=== PATIENT | female | born 1990 | race Caucasian/White ===

== ENCOUNTER 2019-08-08 16:53 | Emergency (ER) | payer OTHER ==
[~2019-08-08] VITALS: Ht 157.4 cm; Wt 80.7 kg
== END 2019-08-08 18:30 | disposition home or self-care (01) ==
LOC: ED 16:53
DX: S70.362A Insect bite (nonvenomous), left thigh, initial encounter (principal); Z91.040 Latex allergy status; W57.XXXA Bitten or stung by nonvenomous insect and other nonvenomous arthropods, initial encounter; Y93.89 Activity, other specified; Y92.89 Other specified places as the place of occurrence of the external cause; Y99.8 Other external cause status

== ENCOUNTER 2020-01-14 09:55 | Emergency (ER) | payer OTHER ==
[~2020-01-14] VITALS: Ht 157.4 cm; Wt 80.7 kg
[2020-01-14 10:38] LABS: BASO % 0.2 % (0.0-1.0); HEMATOCRIT 36.4 % (37.0-47.0); LYMPH # 0.8 10*3/uL (1.3-4.4); LYMPH % 15.3 % (27.0-41.0); MEAN CELL VOLUME 86.1 fl (81.0-99.0); MEAN CORPUSCULAR HGB 29.6 pg (27.0-31.0); MEAN CORPUSCULAR HGB CONC 34.3 g/dl (33.0-37.0); MEAN PLATELET VOLUME 9.5 fl (9.6-12.3); MONO # 0.3 10*3/uL (0.1-1.0); MONO % 5.8 % (3.0-9.0); NEUT % 78.5 % (47.0-73.0); PLATELET COUNT AUTOMATED 213 10*3/uL (130-400); RED BLOOD COUNT 4.23 10*6/uL (4.10-5.10); RED CELL DISTRI WIDTH 11.8 % (0-14.5)
[2020-01-14 10:55] LABS: ALBUMIN 3.5 gm/dl (3.1-4.5); ALKALINE PHOSPHATASE 61 U/L (45-117); BUN 15 mg/dl (7-24); CHLORIDE 104 mmol/L (98-107); CREATININE 0.87 mg/dL (0.55-1.02); POTASSIUM 3.5 mmol/L (3.5-5.1); SGOT/AST 21 IU/L (3-35); SGPT/ALT 25 U/L (12-78); SODIUM 135 mmol/L (136-145); TOTAL PROTEIN 6.9 gm/dL (6.4-8.2)
== END 2020-01-14 11:38 | disposition home or self-care (01) ==
LOC: ED 09:55
PROVIDERS: Nurse Practitioner Family
DX: L03.90 Cellulitis, unspecified (principal); G43.909 Migraine, unspecified, not intractable, without status migrainosus

== ENCOUNTER 2020-01-24 17:20 | Emergency (ER) | payer OTHER ==
[~2020-01-24] VITALS: Ht 157.4 cm; Wt 80.7 kg
[2020-01-24 18:24] LABS: BASO % 0.1 % (0.0-1.0); EOS % 0.3 % (1.0-4.0); HEMATOCRIT 39.7 % (37.0-47.0); LYMPH # 1.1 10*3/uL (1.3-4.4); MEAN CELL VOLUME 88.4 fl (81.0-99.0); MEAN CORPUSCULAR HGB CONC 32.7 g/dl (33.0-37.0); MEAN PLATELET VOLUME 9.1 fl (9.6-12.3); MONO # 0.4 10*3/uL (0.1-1.0); NEUT # 5.7 10*3/uL (2.3-7.9); NEUT % 78.9 % (47.0-73.0); PLATELET COUNT AUTOMATED 388 10*3/uL (130-400); RED BLOOD COUNT 4.49 10*6/uL (4.10-5.10); RED CELL DISTRI WIDTH 12.3 % (0-14.5); WHITE BLOOD COUNT 7.3 10*3/uL (4.8-10.8)
[2020-01-24 18:40] LABS: ALBUMIN 3.8 gm/dl (3.1-4.5); ALKALINE PHOSPHATASE 81 U/L (45-117); BUN 19 mg/dl (7-24); CHLORIDE 106 mmol/L (98-107); CREATININE 0.73 mg/dL (0.55-1.02); POTASSIUM 3.8 mmol/L (3.5-5.1); SGOT/AST 11 IU/L (3-35); SGPT/ALT 34 U/L (12-78); SODIUM 138 mmol/L (136-145); TOTAL PROTEIN 7.7 gm/dL (6.4-8.2)
[2020-01-24] MEDS ORDERED: AMOXICILLIN500 M2 PO (19:01)
== END 2020-01-24 19:08 | disposition home or self-care (01) ==
LOC: ED 17:20
PROVIDERS: Nurse Practitioner Family
DX: R21 Rash and other nonspecific skin eruption (principal); L53.9 Erythematous condition, unspecified; L29.9 Pruritus, unspecified